=== PATIENT | female | born 1995 | race Caucasian/White ===

== ENCOUNTER 2017-12-06 09:50 | Observation (INO) | payer OTHER ==
[~2017-12-06] VITALS: Ht 154.9 cm; Wt 94.8 kg
[2017-12-06] MEDS ORDERED: PNV1TABL76 PO (10:11)
[2017-12-06] MEDS ORDERED: IRON-1 PO (10:11)
[2017-12-06] MEDS ORDERED: FOLI-43 PO (10:11)
== END 2017-12-06 11:10 | disposition home or self-care (01) ==
LOC: L&D 09:50
PROVIDERS: ADMIT Obstetrics & Gynecology; ATTEND Obstetrics & Gynecology
DX: O26.893 Other specified pregnancy related conditions, third trimester (principal); R10.9 Unspecified abdominal pain; O42.92 Full-term premature rupture of membranes, unspecified as to length of time between rupture and onset of labor; O48.1 Prolonged pregnancy; Z3A.40 40 weeks gestation of pregnancy
CPT/HCPCS: G0378